=== PATIENT | male | born 1940 | race Caucasian/White ===

== ENCOUNTER 2016-07-25 09:10 | Observation (INO) | payer MEDICARE, BC ==
[2016-07-25] MEDS ORDERED: Nitroglycerin 2% Ointment Foilpak UD TOP STA (09:41)
[2016-07-25 09:50] LABS: ADD MANUAL DIFF? NO
[2016-07-25 09:53] LABS: BASO # 0.03 [, K/mm3] (0.0-2.0); BASO % 0.6 % (0.0-3.0); EOS # 0.1 (0.0-0.7); EOS % 2.6 % (1.5-5.0); GRAN # 3.22 (1.4-6.5); HEMATOCRIT 33.6 % (42.0-52.0); LYMPH # 1.3 (1.2-3.4); LYMPH % 23.1 % (22.0-35.0); MEAN CORPUSCULAR HEMOGLOBIN 27.7 pg (25.0-35.0); MEAN CORPUSCULAR HGB CONC 34.2 g/dl (31.0-37.0); MEAN PLATELET VOLUME 10.3 fl (7.0-11.0); MONO # 0.8 (0.1-0.6); MONO % 14.7 % (1.0-6.0); PLATELET COUNT 192 [, 10^3/uL] (120.0-450.0); WHITE BLOOD COUNT 5.5 [, 10^3/ul] (4.5-11.0)
[2016-07-25 10:04] LABS: ALB/GLOB RATIO 1.1 (1.1-1.8); ALKALINE PHOSPHATASE 156 U/L (38-133); ALT/SGPT 19 U/L (7-56); AST/SGOT 22 U/L (15-59); BILIRUBIN,TOTAL 0.8 mg/dL (0.2-1.3); BLOOD UREA NITROGEN 19 mg/dL (7-21); CALCIUM 9.1 mg/dL (8.4-10.5); CARBON DIOXIDE 20 mmol/L (21-33); CHLORIDE 106 mmol/L (98-107); GFR AFRICAN-AMERICAN > 60; GLUCOSE,RANDOM 199 mg/dL (70-110); MAGNESIUM 1.9 mg/dL (1.7-2.2); POTASSIUM 4.3 mmol/L (3.6-5.0); SODIUM 136 mmol/L (132-148); TOTAL PROTEIN 6.4 g/dL (5.8-8.3)
[2016-07-25 10:06] LABS: URINE APPEARANCE CLEAR (CLEAR); URINE BILIRUBIN NEGATIVE (NEGATIVE); URINE BLOOD NEGATIVE (NEGATIVE); URINE COLOR YELLOW (YELLOW); URINE GLUCOSE (UA) 100 mg/dL (NEGATIVE); URINE KETONE NEGATIVE (NEGATIVE); URINE LEUKOCYTE ESTERASE NEGATIVE Leu/uL (NEGATIVE); URINE PROTEIN TRACE mg/dL (<30 mg/dL); URINE UROBILINOGEN 0.2 E.U./dL (<1 E.U./dL)
--- NOTE | 2016-07-25 10:13 | ED PDOC ---
Arrival/HPI - General Chief Complaint: Chest Pain Time Seen by Provider: 07/25/16 09:28 Historian: Patient - History of Present Illness Narrative History of Present Illness (Text): 07/25/16 09:32 Eusebio Leo is a 76 year old male, whose past medical history includes hypertension, hyperlipidemia, stable angina, coronary arteries with multiple stents, who presents to the emergency department complaining of difficulty breathing for 2 days. Patient notes that he cannot take a deep breath and experiences chest pain upon exertion or whenever he walks. He notes that his symptoms worsens when he walks and that he cannot sleep. Patient endorses that he took aspirin. which brought relief. At present, patient is still short of breath. Patient notes that he was to [place] 4-5 months ago but denies any symptoms related to present illness and other complaint at this time. PMD: Dr. Peralta Passenger Service Manager: Dr. Larson Time/Duration: < week Symptom Onset: Gradual Symptom Course: Worsening Severity Level: Moderate Activities at Onset: Rest Context: Home Past Medical History - Provider Review Nursing Documentation Reviewed: Yes - Infectious Disease Hx of Infectious Diseases: None - Cardiac Hx Pacemaker: No - Pulmonary Hx Respiratory Disorders: No - Neurological Hx Paralysis: No - HEENT Hx HEENT Disorder: No - Renal Hx Renal Disorder: No - Endocrine/Metabolic Hx Diabetes Mellitus Type 1: Yes - Hematological/Oncological Hx Blood Transfusions: No - Integumentary Hx Dermatological Disorder: No - Musculoskeletal/Rheumatological Hx Musculoskeletal Disorders: No - Gastrointestinal Hx Gastrointestinal Disorders: No - Genitourinary/Gynecological Hx Genitourinary Disorders: No - Psychiatric Hx Emotional Abuse: No Hx Physical Abuse: No Hx Substance Use: No - Surgical History Hx Coronary Stent: Yes (5 stents) - Anesthesia Hx Anesthesia: Yes Hx Anesthesia Reactions: No Hx Malignant Hyperthermia: No - Suicidal Assessment Feels Threatened In Home Enviroment: No Family/Social History - Physician Review Nursing Documentation Reviewed: Yes Family/Social History: No Known Family HX Smoking Status: Heavy Smoker > 10 Cigarettes Daily Hx Alcohol Use: No Hx Substance Use: No Allergies/Home Meds Allergies/Adverse Reactions: Allergies No Known Allergies Allergy (Verified 07/25/16 11:59) Home Medications: Home Meds Medication Instructions Recorded Confirmed Atorvastatin [Lipitor] 40 mg PO DAILY 02/02/16 07/25/16 Metoprolol Succinate 25 mg PO BID 02/10/16 07/25/16 Alfuzosin HCl [Uroxatral] 10 mg PO HS 05/29/16 07/25/16 Aspirin [Ecotrin] 81 mg PO HS 05/29/16 07/25/16 Dutasteride [Avodart] 0.5 mg PO QPM 05/29/16 07/25/16 Furosemide [Lasix] 40 mg PO HS 05/29/16 07/25/16 Insulin Aspart, Recombinant 30 units SC [facility] 05/29/16 07/25/16 [Novolog] Insulin Detemir [Levemir] 15 units SC [facility] 05/29/16 07/25/16 Ramipril [Altace] 1.25 mg PO BID 05/29/16 07/25/16 Review of Systems - Review of Systems Respiratory: SOB Cardiovascular: Chest Pain (upon exertion and walking) Gastrointestinal: absent: Abdominal Pain Genitourinary Male: absent: Urinary Output Changes Musculoskeletal: absent: Back Pain, Neck Pain Skin: absent: Rash Neurological: absent: Dizziness Endocrine: absent: Diaphoresis Hemo/Lymphatic: absent: Easy Bleeding Psychiatric: absent: Depression Physical Exam Vital Signs Reviewed: Yes Vital Signs Temp Pulse Resp BP Pulse Ox 07/25/16 10:15 66 16 113/67 100 07/25/16 10:00 66 14 120/69 100 07/25/16 09:55 119/59 L 07/25/16 09:19 97.8 F 69 19 119/59 L 95 Temperature: Afebrile Blood Pressure: Hypotensive Pulse: Regular Respiratory Rate: Normal Appearance: Positive for: Well-Appearing, Non-Toxic, Comfortable Pain Distress: None Mental Status: Positive for: Alert and Oriented X 3 - Systems Exam Head: Present: Atraumatic, Normocephalic Pupils: Present: PERRL Extroacular Muscles: Present: EOMI Conjunctiva: Present: Normal Mouth: Present: Moist Mucous Membranes Neck: Present: Normal Range of Motion Respiratory/Chest: Present: Clear to Auscultation, Good Air Exchange. No: Respiratory Distress, Accessory Muscle Use Cardiovascular: Present: Regular Rate and Rhythm, Normal S1, S2. No: Murmurs Abdomen: Present: Normal Bowel Sounds. No: Tenderness, Distention, Peritoneal Signs Back: Present: Normal Inspection Upper Extremity: Present: Normal Inspection. No: Cyanosis, Edema Lower Extremity: Present: Edema (Trace LE edema) Neurological: Present: GCS=15, CN II-XII Intact, Speech Normal Skin: Present: Warm, Dry, Normal Color. No: Rashes Psychiatric: Present: Alert, Oriented x 3, Normal Insight, Normal Concentration Medical Decision Making ED Course and Treatment: 07/25/16 09:32 Impression: 76 year old male complaining of difficulty breathing for two days Differential Diagnosis included but are not limited to: CHF Exacerbation, Chest Pain r/o ACS Plan: -- EKG -- Chest x-ray -- Urinalysis -- Labs -- Lasix, Nitro-bid 2% -- Reassess and disposition Prior Visits: Notes and results from previous visits were reviewed. Patient last seen in the ED on 02/08/16 for chest pain for four hours. Patient was admitted to hospitalist care for further evaluation Progress Notes: EKG: Ordered, reviewed, and independently interpreted the EKG. Rate : 68 BPM Rhythm : NSR Interpretation : ST elevations in lead 1. Q-waves in leads in V1 and v2. Comparison : No change from previous on 03/10/16. 07/25/16 09:50 Reviewed labs, Perc. negative. No suspicion for PE. 07/25/16 10:51 Patient still has shortness of breathe and only mildly improved. Case was discussed with Dr. Turpin who will admit to her service for Chest Pain and CHF. - Lab Interpretations Lab Results: 07/25/16 09:48 07/25/16 09:48 Lab Results 07/25/16 09:50: Urine Color Yellow, Urine Appearance Clear, Urine pH 6.0, Ur Specific [place] 1.025, Urine Protein Trace H, Urine Glucose (UA) 100 H, Urine Ketones Negative, Urine Blood Negative, Urine Nitrate Negative, Urine Bilirubin Negative, Urine Urobilinogen 0.2, Ur Leukocyte Esterase Negative, Urine RBC 0 - 2, Urine WBC 0 - 2, Ur Epithelial Cells 0 - 2, Urine Other Mucus 07/25/16 09:48: WBC 5.5, RBC 4.15, Hgb 11.5 L, Hct 33.6 L, MCV 81.0, MCH 27.7, MCHC 34.2, RDW 16.0 H, Plt Count 192, MPV 10.3, Gran % 59.0, Lymph % (Auto) 23.1 , Bartholomew % (Auto) 14.7 H, Eos % (Auto) 2.6, Baso % (Auto) 0.6, Gran # 3.22, Lymph # 1.3, Bartholomew # 0.8 H, Eos # 0.1, Baso # 0.03, Sodium 136, Potassium 4.3, Chloride 106, Carbon Dioxide 20 L, Anion Gap 14, BUN 19, Creatinine 1.1, Est GFR ( Amer) > 60, Est GFR (Non-Af Amer) > 60, Random Glucose 199 H, Calcium 9.1, Magnesium 1.9, Total Bilirubin 0.8, AST 22, ALT 19, Alkaline Phosphatase 156 H, Lactate Dehydrogenase 523, Total Creatine Kinase 76, Troponin I 0.04 D, NT-Pro-B Natriuret Pep 2150 H, Total Protein 6.4, Albumin 3.4, Globulin 3.0, Albumin/Globulin Ratio 1.1 I have reviewed the lab results: Yes - RAD Interpretation Radiology Orders: 07/25/16 09:42 CHEST PORTABLE [RAD] Stat - Medication Orders Current Medication Orders: Aspirin (Ecotrin) 81 mg PO HS [facility] Atorvastatin Calcium (Lipitor) 40 mg PO DAILY [facility] Insulin Detemir (Levemir) 15 unit SC [facility] Insulin Human Lispro (Humalog Med) 0 units SC [facility] PRN Reason: Protocol Metoprolol Succinate (Toprol Xl) 25 mg PO BID [facility] Dutasteride [Avodart (] 0.5 Mg (Home Med)) 0.5 mg PO QPM [facility] Non-Formulary Medication (Insulin Aspart, Recombinant [Novolog]) 30 units SC [facility] Ramipril (Altace) 1.25 mg PO BID LEYLA Ticagrelor (Brilinta) 90 mg PO BID [facility] Discontinued Medications Furosemide (Lasix) 40 mg IVP STAT STA Stop: 07/25/16 09:43 Last Admin: 07/25/16 09:55 Dose: 40 MG MAR Blood Pressure Document 07/25/16 09:55 SE (Rec: 07/25/16 09:55 [id number]) Blood Pressure Blood Pressure (100/60-150/90) 119/59 IVP Administration Document 07/25/16 09:55 SE (Rec: 07/25/16 09:55 [id number]) Charges for Administration # of IVP Administrations 1 Nitroglycerin (Nitro-Bid 2% Oint) 1 ea TOP STAT STA Stop: 07/25/16 09:42 Last Admin: 07/25/16 09:54 Dose: 1 EA - Scribe Statement The provider has reviewed the documentation as recorded by the Scribe Andra Sequeira Provider Scribe Attestation: All medical record entries made by the Scribe were at my direction and personally dictated by me. I have reviewed the chart and agree that the record accurately reflects my personal performance of the history, physical exam, medical decision making, and the department course for this patient. I have also personally directed, reviewed, and agree with the discharge instructions and disposition. Disposition/Present on Arrival - Present on Arrival Any Indicators Present on Arrival: No History of DVT/PE: No History of Uncontrolled Diabetes: No Urinary Catheter: No History of Decub. Ulcer: No History Surgical Site Infection Following: None - Disposition Have Diagnosis and Disposition been Completed?: Yes Diagnosis: Chest pain, Congestive heart failure Disposition: HOSPITALIZED Disposition Time: 10:25 Patient Plan: Observation Patient Problems: Current Active Problems Problem Status Diagnosed Coronary stent restenosis Acute Elevated troponin Acute Leg pain, right Acute Condition: FAIR
[2016-07-25 10:15] LABS: TROPONIN I 0.04 ng/mL
[2016-07-25 10:16] LABS: URINE EPITHELIAL CELLS 0 - 2 /hpf (0-5); URINE RBC 0 - 2 /hpf (0-2); URINE WBC 0 - 2 /hpf (0-6)
--- NOTE | 2016-07-25 11:53 | RAD ---
HISTORY: sob r/o chf COMPARISON: 02/02/2016. FINDINGS: LUNGS: There is pulmonary venous congestion, pulmonary redistribution and interstitial pulmonary edema. There is no focal consolidation. The lungs are well inflated. PLEURA: No significant pleural effusion identified, no pneumothorax apparent. CARDIOVASCULAR: There is mild cardiomegaly. OSSEOUS STRUCTURES: No significant abnormalities. VISUALIZED UPPER ABDOMEN: Normal. OTHER FINDINGS: None. IMPRESSION: Findings are consistent with congestive heart failure.
[2016-07-25] MEDS: Metoprolol Succinate 25 mg XL Tab PO SCH ×2 (12:17→17:25)
--- NOTE | 2016-07-25 14:30 | CARD ---
APPROVED REPORT EKG Measurement Heart [id number] <Conclusion> Normal sinus rhythm Septal infarct, age undetermined Abnormal ECG
[2016-07-25 15:24] VITALS: BMI 25.1
[2016-07-25] MEDS ORDERED: Pneumococcal 23-Valent Vaccine IM ONE (15:24)
[2016-07-25] MEDS ORDERED: Influenza Vaccine 45 MCG/0.5 ml IM ONE (15:24)
[2016-07-25] MEDS: Insulin Lispro (humaLOG) MEDIUM Coverage SC SCH ×2 (17:24→22:37)
--- NOTE | 2016-07-25 17:44 | HP ---
HISTORY OF PRESENT ILLNESS: The patient is a 76-year-old who states he was having shortness of breat h for last 2 days that got worse today, so he came to Emergency Room. He was having some chest tight ness. Also denies any fever or chills. No history of nausea or vomiting, no history of diarrhea, no hemoptysis, no hematemesis. The patient had been admitted in June, when he passed out, and he h ad blurry vision. He thought he was having a stroke, but all the workup was negative. PAST MEDICAL HISTORY: Significant for: 1. Hypertension. 2. Insulin-dependent diabetes. 3. Hyperlipidemia. 4. Coronary artery disease, status post angioplasty; when he was found to have critical disease in th e proximal LAD. He has a patent stent in the distal LAD. 5. Patent stent in obtuse marginal. 6. He also was found to have mildly decreased LV function, status post angioplasty of the proximal le ft anterior descending. 7. Hyperlipidemia. ALLERGIES: Not allergic to any medications. MEDICATIONS AT HOME: He is on Brilinta 90 mg twice a day, ramipril 1.25 twice a day, metoprolol 25 b .i.d., Levemir 15 units before breakfast and bedtime, NovoLog 30 units twice a day, Lasix 40 mg at be dtime, Avodart 0.5 in the evening, atorvastatin 40 mg daily, aspirin 81 at bedtime. SOCIAL HISTORY: He is , lives with his , he still smokes. He used to be a heavy smoker f or 40 years and lately he smokes almost 10 cigarettes a day. PHYSICAL EXAMINATION: GENERAL: He is awake and alert, communicative. He states he is feeling better since he came in. VITAL SIGNS: He is afebrile, pulse 67, respirations 16, blood pressure 122/69. LUNGS: Bilateral fair airflow. Soft crackle at bases. HEART: S1, S2 audible. ABDOMEN: Soft, nontender, obese. No hepatosplenomegaly. NEUROLOGIC: He is awake and alert. LABORATORY DATA: WBC is , hemoglobin 11.5, hematocrit 33.6, platelets 192. Chemistry: Sodium 136, potassium 4.3, chloride 106, CO2 of 20, BUN 19, creatinine 1.1, blood sugar 199. LFTs are withi n normal limits. Alkaline phosphatase 156. BNP is 2150. Urinalysis shows positive glucose. ECG shows normal sinus rhythm, septal infarct, age undetermined. X-ray of the chest, that was done today around 10 o'clock, shows congestive heart failure. ASSESSMENT: 1. Coronary artery disease. 2. Congestive heart failure exacerbation, [id number], systolic. 3. Insulin-dependent diabetes. 4. Hypertension. 5. Hyperlipidemia. PLAN: The patient will be admitted. We will diurese the patient and follow up cardiac enzymes, shaye tor his blood sugar. Cardiology evaluation has been requested. We will follow up electrolytes and r eevaluate the patient in a.m. Michael Turpin MD cc: [id number] TT: 07/25/2016 17:44:46 ln
[2016-07-25] MEDS ORDERED: Dutasteride [Avodart] 0.5 MG (HOME MED) PO SCH (18:00)
[2016-07-25] MEDS: Insulin Detemir 100 units/ml Vial (Levemir) SC SCH (22:38)
[2016-07-25] MEDS: Insulin Lispro 1 UNITS/0.01 ML SC SCH (22:38)
[2016-07-26 06:37] VITALS: RESP 19; O2SAT 95
[2016-07-26 07:01] LABS: ALB/GLOB RATIO 1.1 (1.1-1.8); BILIRUBIN,TOTAL 0.8 mg/dL (0.2-1.3); MAGNESIUM 1.9 mg/dL (1.7-2.2); POTASSIUM 3.8 mmol/L (3.6-5.0); TOTAL PROTEIN 6.8 g/dL (5.8-8.3)
[2016-07-26 07:04] LABS: TROPONIN I 0.02 ng/mL
[2016-07-26] MEDS: Insulin Lispro (humaLOG) MEDIUM Coverage SC SCH ×2 (07:36→12:47)
[2016-07-26] MEDS: Insulin Lispro 1 UNITS/0.01 ML SC SCH (07:38)
[2016-07-26] MEDS: Insulin Detemir 100 units/ml Vial (Levemir) SC SCH (07:44)
[2016-07-26] MEDS: Metoprolol Succinate 25 mg XL Tab PO SCH (09:59)
[2016-07-26 12:48] VITALS: BP 137/71; PULSE 63; TEMP 97.1
[2016-07-26] MEDS ORDERED: Magnesium Citrate Oral SOL (300 ml) PO STA (14:20)
--- NOTE | 2016-07-26 15:47 | DS ---
The patient is a 76-year-old, seen and examined, lying in bed, comfortable. No cough, no congestion, no fever, no chills, no chest pain, no shortness of breath anymore. PHYSICAL EXAMINATION: VITAL SIGNS: He is afebrile, pulse 63, respirations 19, blood pressure 137/71. LUNGS: Bilateral fair airflow, no rhonchi or crackle. HEART: S1, S2 audible. No murmur. ABDOMEN: Soft, obese, nontender, no rebound, no guarding. NEUROLOGIC: The patient is awake and alert, communicative, ambulatory. LABORATORY EXAMINATION: Sodium 136, potassium 3.8, chloride 102, CO2 24, BUN 22, creatinine 1.4, blo od sugar of 188. ASSESSMENT: 1. Active smoking. 2. Combination of chronic obstructive pulmonary disease and mild congestive heart failure, acute on chronic systolic dysfunction. 3. Coronary artery disease, status post angioplasty. 4. Hypertension. 5. Insulin-dependent diabetes. PLAN: The patient is currently stable. There is no evidence of acute myocardial infarction. The pa tiezack is stable, wants to go home. His 2 sets of cardiac enzymes are negative. No evidence of activ e ischemia. The patient is advised to quit smoking, although he admits that he smokes 1 cigarette wi th each meal and he will resume all his medication as prior to admission that includes Brilinta 90 b. i.d., ramipril 1.25 twice a day, metoprolol 25 b.i.d., Levemir 15 units before breakfast and bedtime and then he is on Humalog 30 units before breakfast and dinner, Lasix is 40 mg daily. He takes Avoda rt, atorvastatin, aspirin, so he will continue all that. He will follow up in office in a week. He is advised to quit smoking. He is given prescription for ProAir 2 puffs q.i.d. as needed. Michael Turpin MD cc: [id number] TT: 07/26/2016 15:46:25 en
--- NOTE | 2016-07-27 08:44 | CON ---
DATE: 07/26/2016 CARDIOLOGY CONSULTATION Cardiology consultation (for Dr. Larson). HISTORY OF PRESENT ILLNESS: The patient is a 76-year-old male with history of multiple angioplasties in the past, as well as a depressed ischemic dilated cardiomyopathy who presents with exertional andrés rtness of breath and chest discomfort. PAST MEDICAL HISTORY: Includes COPD, diabetes mellitus, and hypercholesterolemia. Currently, the patient is chest pain free and has asked to go home. SOCIAL HISTORY: He is a former heavy smoker, which has been stopped. REVIEW OF SYSTEMS: A 14-point review of systems is reviewed in detail. No additional symptoms are n oted. PHYSICAL EXAMINATION: VITAL SIGNS: Blood pressure is 100/42. The heart rate is in the 70s. NECK: Negative JVD. LUNGS: Bilateral rhonchi. HEART: Reveals S1, S2. EXTREMITIES: Without edema. EKG shows no acute changes. LABORATORIES: Reveal troponins that are negative x 2. The proBNP is 2150. Glucose is 216 with a he moglobin of 11.5. IMPRESSION: 1. Recurrent angina, which is now resolved on nitroglycerin. 2. No evidence for acute coronary syndrome. 3. History of percutaneous transluminal coronary angioplasty. 4. Ischemic dilated cardiomyopathy. 5. Anemia. 6. Chronic obstructive pulmonary disease. PLAN: Given these findings, I have discussed with the patient about the possibility of the need for recurring catheterization. The patient refuses at this time. He requested whatever to be done can b e done as an outpatient. If the patient is ruled out and is asymptomatic, he certainly can have a stress test, which can be do ne as an outpatient. If the patient is still in the hospital, I will transfer the care back to Dr. Larson in the morning. Cody Quinn MD cc: [id number] TT: 07/26/2016 09:20:33 Confirmation # [id number] Dictation # [id number] royer
== END 2016-07-26 15:36 | disposition home or self-care (01) ==
LOC: ED 09:10 → ERH 10:51 → 2RNO 13:17
PROVIDERS: ADMIT Internal Medicine; ATTEND Internal Medicine
DX: I11.0 Hypertensive heart disease with heart failure (principal); I50.23 Acute on chronic systolic (congestive) heart failure; J44.9 Chronic obstructive pulmonary disease, unspecified; I25.10 Atherosclerotic heart disease of native coronary artery without angina pectoris; Z95.5 Presence of coronary angioplasty implant and graft; E11.9 Type 2 diabetes mellitus without complications; Z79.4 Long term (current) use of insulin; I25.5 Ischemic cardiomyopathy; D64.9 Anemia, unspecified; Z87.891 Personal history of nicotine dependence; E78.00 Pure hypercholesterolemia, unspecified
CPT/HCPCS: 36415; 71010; 80053; 81001; 82550; 82948; 83615; 83735; 83880; 84484; 85025; 90732; 93005; 96374; 99285; G0009; G0378; J1940